=== PATIENT | female | born 1985 | race Caucasian/White ===

== ENCOUNTER 2024-03-07 12:11 | Emergency (ER) | payer OTHER, SELFPAY ==
[2024-03-07 12:16] VITALS: BP 161/105; PULSE 108; RESP 20; TEMP 36.9; O2SAT 96
--- NOTE | 2024-03-07 12:20 | ED.GENADULT ---
HPI - General Adult General Chief complaint: Upper Respiratory Infection Stated complaint: Sinus/Cough Time Seen by Provider: 03/07/24 12:20 Patient presents with complaints of being sick for 2 weeks. She reports that symptoms began with a runny nose and some sinus congestion. Over the past week she has noted more sinus pain, postnasal drip, cough. She states that yesterday she began wheezing and this is when she got concerned. She denies any fever, chills, sweats. She denies any GI symptoms. She does report that many years ago she was told that her blood pressure is elevated, but she was never put on any medications for same. She does not have a primary care provider at this time. She denies any chest pain or shortness of breath. Source: patient Related Data Allergies Allergy/AdvReac Type Severity Reaction Status Date / Time morphine AdvReac Intermediate itching Verified 03/07/24 12:14 Review of Systems Review of Systems: All systems reviewed & are unremarkable except as noted in HPI and below Constitutional: Constitutional: Reports no additional constitutional complaints ENT: Reports system reviewed and no additional complaints, except as documented, Reports as per HPI, Reports nasal discharge, Reports sinus pain, Reports sinus pressure and Reports sore throat Cardiovascular: Cardiovascular: Reports no additional cardiovascular complaints Respiratory: Respiratory: Reports no additional respiratory complaints, Reports cough, Denies pain with cough, Denies dyspnea and Reports wheezing Gastrointestinal: Gastrointestinal: Reports no additional gastrointestinal complaints [facility] Family History Family History Other Diabetes mellitus Family history of cardiovascular disease Hypertension Malignant neoplasm of prostate Social History Social History Alcohol intake: never Exam Const: General: cooperative, no acute distress, alert and awake Orientation/consciousness: oriented to person, oriented to place and oriented to time HENMT: Head: normal to inspection Face/Nose/Sinus: sinus tenderness (frontal) and Facial tenderness on exam of face and sinuses Throat: posterior oropharynx abnormal erythema and postnasal drainage Resp: Effort & Inspection: normal respiratory effort and able to speak in complete sentences Auscultation: clear to auscultation bilaterally, no crackles, no rales, no rhonchi and wheezes expiratory wheezes and scattered wheezes Cardio: Palpation: normal PMI Rate: regular rate Rhythm: regular rhythm Heart sounds: S1 normal heart sound present and S2 normal heart sound present Neuro: General: oriented to person, oriented to place and oriented to time Cranial nerves: Yes CN's II-XII intact bilaterally Psych: Appearance: grossly normal Thought process: Normal thought process present Insight: Good insight present (Psych) Judgement: Good judgement present (Psych) Course Course Level of Care: Express Care Visit Vital Signs Vital signs: Vital Signs Temperature 98.5 F 03/07/24 12:16 Pulse Rate 108 H 03/07/24 12:16 Respiratory Rate 20 03/07/24 12:16 Blood Pressure 161/105 H 03/07/24 12:16 Pulse Oximetry 96 03/07/24 12:16 Oxygen Delivery Room Air 03/07/24 12:16 Temperature 98.5 F 03/07/24 12:16 Pulse Rate 108 H 03/07/24 12:16 Respiratory Rate 20 03/07/24 12:16 Blood Pressure 161/105 H 03/07/24 12:16 Pulse Oximetry 96 03/07/24 12:16 Oxygen Delivery Room Air 03/07/24 12:16 Medical Decision Making MDM Narrative Medical decision making narrative: Patient with 2 week history of illness, worsening. Exam is consistent with both bronchitis and acute sinusitis. Will treat both conditions. Patient's blood pressure is noted to be quite elevated. She reports this has been pointed out to her in the past, but she was never put on any medications. She d
== END 2024-03-07 12:50 | disposition home or self-care (01) ==
PROVIDERS: Emergency Provider Nurse Practitioner Family
DX: J40 Bronchitis, not specified as acute or chronic (principal); J01.10 Acute frontal sinusitis, unspecified; R03.0 Elevated blood-pressure reading, without diagnosis of hypertension
CPT/HCPCS: 99213; G0463

== ENCOUNTER 2024-03-19 23:42 | Emergency (ER) | payer OTHER, SELFPAY ==
--- NOTE | ~2024-03-19 | XR_ITS ---
Clinical Indication: Shortness of breath, cough PA and lateral views of the chest: Comparison: 05/08/2011 Findings: The lungs are clear, without evidence of focal consolidation or pleural effusion. Cardiome diastinal silhouette is within normal limits. Bones and soft tissues are unremarkable. Impression: Normal chest. Reviewed, dictated and finalized at location . Impression: Normal chest.
--- NOTE | ~2024-03-19 | CT_ITS ---
Clinical Indication: Dyspnea CT Scan of the Chest with Contrast: Technique: Contiguous sections were acquired throughout the chest after intravenous administration of 100 cc of Omnipaque 350. Dose reduction technique was used on this scan by utilizing automated expos ure control and iterative reconstruction technique. The dose-length product (DLP) was 494.48 mGy-cm. Findings: There is no evidence of any significant mediastinal, hilar or axillary lymphadenopathy. There is no f illing defect in the pulmonary arterial tree to suggest pulmonary embolus. There is no evidence of ao rtic dissection or aneurysm. There is no evidence of pleural or pericardial effusion. The lungs are clear. No pulmonary nodules or infiltrates are noted. Images through the upper abdomen reveal no abnormalities. Impression: No evidence of pulmonary embolus, aortic dissection, or aortic aneurysm. Clear lungs. Reviewed, dictated and finalized at [facility]. Impression: No evidence of pulmonary embolus, aortic dissection, or aortic aneurysm. Clear lungs.
[2024-03-19 23:54] VITALS: BP 204/103; PULSE 128; RESP 20; TEMP 36.6; O2SAT 99
--- NOTE | 2024-03-20 03:34 | ECG_ITS ---
Test Date: 2024-03-20 03:45:18 Measurements Intervals [place] Rate: 96 P: 25 TN: 149 QRS: 1 QRSD: 85 T: 23 QT: 323 QTc: 409 Interpretive Statements SINUS RHYTHM VOLTAGE CRITERIA FOR LVH [MEETS CRITERIA IN ONE OF: R(aVL), S(V1), R(V5), R(V5/V6)+S(V1)] BORDERLINE ECG No previous ECG available for comparison Electronically Signed On 03-20-2024 17:05:50 CDT by Farooq Andres M.D.
[2024-03-20 03:53] LABS: Basophils Absolute Auto 0.1 K/mm3 (0.0-0.1); Basophils Percent Auto 0.3 % (0.2-1.2); Eosinophils Absolute Auto 0.1 K/mm3 (0-0.3); Eosinophils Percent Auto 0.8 % (0-4.4); Hematocrit 44.7 % (37.0-47.0); Hemoglobin 15.1 g/dL (12.0-15.0); Immature Granulocyte Absolute 0.06 K/mm3 (0.00-0.031); Immature Granulocyte Percent A 0.4 % (0-0.5); Lymphocytes Absolute Auto 5.15 K/mm3 (0.9-3.2); Lymphocytes Percent Auto 35.4 % (18.3-44.2); Mean Corpuscular HGB Conc 33.8 g/dl (32-36); Mean Corpuscular Hemoglobin 30.7 pg (26-34); Mean Corpuscular Volume 90.9 fl (80-100); Mean Platelet Volume 9.5 fl (7.4-10.4); Monocytes Absolute Auto 0.9 K/mm3 (0.1-0.6); Monocytes Percent Auto 5.8 % (2.6-8.5); Neutrophils Absolute Auto 8.3 K/mm3 (1.3-6.7); Neutrophils Percent Auto 57.3 % (45.5-73.1); Platelet Count Result 424 k/mm3 (150-375); Red Blood Count 4.92 M/mm3 (4.2-5.4); Red Cell Distribution Width 13.1 % (11.5-14.5); White Blood Count 14.6 K/mm3 (4.5-10.0)
[2024-03-20 04:09] LABS: Alanine Aminotransferase 47 U/L (6-35); Alkaline Phosphatase 128 U/L (38-126); Anion Gap 13 mmol/L (4-12); Aspartate Amino Transferase 42 U/L (14-36); Bilirubin,Total 0.5 mg/dL (0.2-1.3); Blood Urea Nitrogen 9 mg/dL (7-17); Calcium 9.5 mg/dL (8.4-10.2); Carbon Dioxide 23 mmol/L (22-30); Chloride 102 mmol/L (98-107); Estimated CRCL calculation 106 ml/min; Estimated Glomerular Filt Rate > 60; Glucose 127 mg/dL (65-110); Sodium 138 mmol/L (137-145)
[2024-03-20 04:29] LABS: Influenza A QL RT-PCR Negative (Negative); Influenza B QL RT-PCR Negative (Negative); RSV RNA, RT-PCR Negative (Negative); SARS-CoV-2 RNA PCR Negative (Negative)
[2024-03-20 06:09] VITALS: O2SAT 97
[2024-03-20 06:12] VITALS: BP 186/117; PULSE 113; RESP 17; O2SAT 96
[2024-03-20] MEDS: SODIUM CHLORIDE 0.9% IV 1,000 ML 999 ML IV CONT (06:12)
[2024-03-20 06:19] VITALS: PULSE 96; RESP 12
[2024-03-20] MEDS: IPRATROPIUM 0.5 MG/ALBUTEROL SULFATE 2.5 MG AMPUL.NEB 3 ML INHALATION (06:19)
[2024-03-20 06:21] VITALS: TEMP 36.9
--- NOTE | 2024-03-20 06:21 | PC.NURSE ---
EDP made aware of continuous high BP readings. no additional orders at this time.
[2024-03-20 06:28] VITALS: PULSE 97; RESP 14
[2024-03-20 06:38] LABS: INR 0.9; Prothrombin Time 12.6 Seconds (11.1-14.7)
[2024-03-20 06:39] LABS: Partial Thromboplastin Time 32.2 Seconds (22.3-36.8)
--- NOTE | 2024-03-20 06:47 | ED.GENADULT ---
HPI - General Adult General Chief complaint: Upper Respiratory Infection <Justino Perez MD - Last Filed: 03/20/24 06:50> Stated complaint: Coughx1 month, seen at <Justino Perez MD - Last Filed: 03/20/24 06:50> Time Seen by Provider: 03/20/24 05:18 <Justino Perez MD - Last Filed: 03/20/24 06:50> History of Present Illness HPI narrative: patient is a 39-year-old female who presents emergency department with chief complaint of cough and shortness of breath. The patient reports that she was seen at urgent care diagnosed with bronchitis put on Augmentin and Tessalon Perles the patient reports that she has continued to have a cough and noticed that her heart rate has been fast patient states that her blood pressure was running on the higher side and reports that his symptoms are just not getting any better. Patient reports no prior history of cardiac disease reports no history of thromboembolic disease <Justino Perez MD - Last Filed: 03/20/24 06:50> patient is a 39-year-old female who presents to the emergency department with chief complaint of cough and shortness of breath. The patient reports that she was seen at urgent care diagnosed with bronchitis put on Augmentin and Tessalon Perles the patient reports that she has continued to have a cough and noticed that her heart rate has been fast patient states that her blood pressure was running on the higher side and reports that his symptoms are just not getting any better. Patient reports no prior history of cardiac disease reports no history of thromboembolic disease <Cody Owens MD - Last Filed: 03/20/24 17:39> Related Data Allergies/adverse reactions: Allergies Allergy/AdvReac Type Severity Reaction Status Date / Time morphine AdvReac Intermediate itching Verified 03/19/24 23:57 <Justino Perez MD - Last Filed: 03/20/24 06:50> Review of Systems Review of Systems: A 10 system review of systems was completed on the patient and is negative except for what is stated in the HPI. Nursing and ancillary documentation was reviewed. <Justino Perez MD - Last Filed: 03/20/24 06:50> [facility] Family History Family History: Family History Other Diabetes mellitus Family history of cardiovascular disease Hypertension Malignant neoplasm of prostate <Justino Perez MD - Last Filed: 03/20/24 06:50> Social History Social History: Social History Alcohol intake: never <Justino Perze MD - Last Filed: 03/20/24 06:50> Exam Narrative: GENERAL: Well-appearing, well-nourished, and in no acute distress. HEAD: Normocephalic, atraumatic. EYES: PERRLA and EOMI. ENT: Nares clear, no rhinorrhea or epistaxis. Mucous membranes moist. NECK: Supple. CHEST: Clear to auscultation. No respiratory distress. HEART: tachycardic rate and regular rhythm. No murmur heard. Normal peripheral pulses. ABDOMEN: Soft, nontender, nondistended, normal active bowel sounds. EXTREMITIES: Normal range of motion. No edema. SKIN: Warm, dry, no rash. NEURO: No focal deficits. Alert and oriented x3. PSYCH: Normal mood and affect. <Justino Perez MD - Last Filed: 03/20/24 06:50> Course Reevaluation(s) Reevaluation #1: Patient care was signed out to me by Dr. Perez with CTA pending. Patient was afebrile but does have a leukocytosis of 14.6 but a stable hemoglobin of 15.1. Patient had no significant abnormalities on her CMP, EKG showed no evidence acute STEMI and patient's troponin was negative. Patient was negative for influenza RSV and for COVID. Chest x-ray showed no acute abnormality. CTA was ordered to evaluate for pulmonary embolism and this was negative. CTA also did not show any underlying pneumonia. Patient states that
[2024-03-20 06:51] LABS: Troponin I < 0.012 ng/mL (0.000-0.034)
[2024-03-20 07:00] LABS: Procalcitonin 0.1 ng/mL
[2024-03-20 08:18] VITALS: BP 183/102; PULSE 110; RESP 20; O2SAT 98
== END 2024-03-20 08:19 | disposition home or self-care (01) ==
PROVIDERS: Emergency Provider Emergency Medicine
DX: J06.9 Acute upper respiratory infection, unspecified (principal); Z20.822 Contact with and (suspected) exposure to COVID-19
CPT/HCPCS: 36415; 71046; 71275; 80053; 84145; 84484; 85025; 85610; 85730; 87637; 93005; 94640; 96360; 96361; 99284; J7030; Q9967

== ENCOUNTER 2024-12-27 15:09 | Outpatient (CLI) | payer OTHER, SELFPAY ==
--- NOTE | ~2024-12-27 | XR_ITS ---
XR lumbar spine 2-3V 12/27/2024 15:25 Indication: Low back pain. No recent injury. Procedure: 3 views lumbar spine Comparison: 02/20/2016 Findings: Vertebral body heights are maintained. There is mild disc narrowing at L5-S1. There is face t hypertrophy at L4-5 and L5-S1. Pedicles intact. Sacral foramen are symmetric. No acute fracture or traumatic malalignment. Impression: 1: Mild lumbar spondylosis. Reviewed, dictated and finalized at location A. Impression: 1: Mild lumbar spondylosis.
--- OUTSIDE RECORDS SUMMARY | 2024-12-27 15:13 | XMS_ITS | Clinical Summary ---
Author Organization [facility] Address [address] [place] [id number] Care Team Providers Care Gis Scientist Name Role Phone Unavailable Primary Care Provider Unavailabl e Social History Tobacco Use Types Packs/Day Years Used Date Smoking Tobacco: Never Assessed Comments Unknown Sex and Gender Information Value Date Recorded Sex Assigned at Not on file Legal Sex Female 5:36 PM CDT Gender Identity Not on file Sexual Orientation Not on file Last Filed Vital Signs Vital Sign Reading Time Taken Comments Blood Pressure 132/80 08/26/2016 1:55 PM [employer] Pulse 103 08/26/2016 1:55 PM [employer] Temperature - - Respiratory Rate - - Oxygen Saturation - - Inhaled Oxygen Concentration - - Weight 94.8 kg (209 lb) 08/26/2016 1:55 PM [employer] Height 163.8 cm (5' 4.5 ) 08/26/2016 1:55 PM [employer] Body Mass Index 35.32 08/26/2016 1:55 PM [employer] Plan of Treatment Health Maintenance Due Date Last Done Comments Cervical Cancer Screening Pa p Smear (Age 30 to 64) Every 3 Years 1987 Annual Physical 1990 Hepatitis C 2005 DTaP, Tdap and Td Vaccines ( 1 - Tdap) 2006 Hepatitis B Vaccines (1 of 3 - 19+ 3-dose series) 2006 Cervical Cancer Screening Pa p with HPV Testing (Age 30 to 64) Every 5 Years 2017 Cervical Cancer Screening with HPV 2017 COVID-19 Vaccine (2023-2 5 season) 2024 HPV Vaccines Aged Out No longer eligi ble based on patient's age to complete this topic Meningococcal B Vaccine Aged Out No l onger eligible based on patient's age to complete this topic Meningococcal Vaccine Aged Out No deanna alice eligible based on patient's age to complete this topic Pneumococcal Vaccine: Pediat rics (0 to 5 Years) and At-Risk Patients (6 to 49 Years) Aged Out No longer eligible b ased on patient's age to complete this topic RSV Immunizations Under 20 Months Aged Out No longer eligible based on patient's age to complete this topic
--- OUTSIDE RECORDS SUMMARY | 2024-12-27 15:13 | XMS_ITS | Data Portability ---
Author Organization [facility] [employer], Main Office Address [address] [place] [address] Assessment No assessment recorded. Plan of Treatment Reminders Order Date Submit Date Provider Last Modified By Organization Details Last Modified Time Details Appointments Follow Up 2024 01:30P CHUCK Garcia Not available Not available Not available Follow Up 2024 01:00P CHUCK Garcia Not available Not available Not available Lab CBC w/ auto diff 2024 025 [facility] (Lab), [address] [place], [address], 12/27/2024 14:55:11 C-reactiv e protein, quantitat ramesh, serum or plasma 2024 025 [facility] (Lab), [address] [place], [address], 12/27/2024 14:55:12 hepatic function panel, serum 2024 025 [facility] (Lab), [address] [place], [address], 12/27/2024 14:55:11 hemoglobi n A1C, fingersti ck 2024 025 [facility], [address] [place] [address], [address], 12/27/2024 14:54:57 vitamin B12 + folate, serum or blood 2024 025 [facility] (Lab), [address] [place], [address], 12/27/2024 14:55:12 vitamin D, 25-hydrox y, total, serum 2024 025 [facility] (Lab), [address] [place], [address], 12/27/2024 14:55:11 CMP, serum or plasma [address] (Lab), [address] [place], [address], 11/23/2024 08:08:31 lipid panel, serum [address] (Lab), [address] [place], [address], 11/23/2024 08:08:31 CBC w/ auto diff [facility]24 [facility] [address] [place], [address], 11/21/2024 12:16:39 glycohemo globin, total, blood [address] (Lab), [address] [place], [address], 11/23/2024 08:08:31 TSH, serum or plasma [address] (Lab), [address] [place], [address], 11/23/2024 08:08:30 thyroid peroxidas e (tpo) Ab, serum [address] (Lab), [address] [place], [address], 11/23/2024 08:08:30 Referral gastroent erologist referral - Ribbon like stools 2024 [email or web address] Not available 12/27/2024 15:14:37 dermatolo gist referral - Please call patient to schedule an appointme nt. Thank you. 2024 025 GERARD Blair NP, [address] [place], [address], 11/16/2024 18:50:36 Procedures None recorded. Surgeries None recorded. Imaging XR, lumbosacr al spine, 2 or 3 view 2024 [email or web address] [facility], [address], [place], [address], 12/27/2024 15:14:37 US, thyroid - Please call patient to schedule. 2024 025 [facility] ([facility]), [address] [place], [address], 12/01/2024 15:09:58 Medication Orders Mounjaro 2.5 mg/0.5 mL subcutane ous pen injector 2024 [id number], [address] [place], [place], [id number], 12/27/2024 14:55:07 lisinopri l 10 mg tablet 2024 025 [facility] #[id number], [address] [place], [place], [id number], 11/16/2024 17:12:10 omeprazol e 40 mg capsule,d elayed release 2024 025 [id number], [address] [place], [place], [id number], 11/16/2024 17:12:09 Patient TargetsNo targets recorded. Patient InstructionsNo instructions recorded. 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 Thank you. Referring Physician: Monica Washburn [facility], Encounter Date: 11/16/2024 Ticket Taker Referral for Abnormal feces Ribbon like stools Referring Physician: Monica Washburn [facility], Encounter Date: 12/27/2024 Results Created Date Observation Date Name Description Value Unit Range Abnormal Flag Note LastModifiedBy Organization Detail LastModifiedTime 12/02/1912/01/2024 US, thyro id No observ ation record ed. [facility] [address] [place], [address], 12/01/2024 17:17:00 Result Notes None recorded. Problems Name Problem SNOMED Code Status Onset Date Resolution Date Notes Provider Name and Address Organization Details Recorded Time Essential hypertension 36711529 Active 2024 CHUCK Quiroz [address], [place], [address], [employer] 16:16:54 Multinodular goiter 108534585 Active 2024 CHUCK Quiroz [address], [place], [address], [employer] 16:17:13 Skin lesion 81328453 Active 2024 CHUCK Quiroz [address], [place], [address], [employer] 16:19:15 Gastroesophage al reflux disease without esophagitis 140284200 Active 2024 CHUCK Quiroz [address], [place], [address], [employer] 16:26:02 Hyperlipidemia 50791564 Active [address], [place], [address], [employer] [place] [facility] 11:27:40 Type 2 diabetes mellitus without complication 833272402 Active 2024 CHUCK Quiroz [address], [place], [address], [employer] [place] [facility] 11:27:58 Fatigue 93292674 Active [address], [place], [address], [employer] [place] [facility] 14:41:08 Type 2 diabetes mellitus 69191336 Active 2024 CHUCK Quiroz [address], [place], [address], [employer] [place] [facility] [email or web address] 14:41:27 Leukocytosis 916275853 Active [address], [place], [address], [employer] [place] [email or web address] [email or web address] 14:44:51 Abnormal feces 809227537 Active 2024 CHUCK Quiroz [address], [place], [address], [employer] [facility] [employer] [facility] [email or web address] 14:47:38 Low back pain 198568324 Active [address], [place], [address], [employer] [place] [facility] 14:50:19 Umbilical hernia 236674336 Active 2024 CHUCK Quiroz [address], [place], [address], [place] [facility] 15:31:36 Problem Notes None recorded. Procedures Surgical History Date Name Laterality Status Provider Name and Address Organization Details Recorded Time 1 procedure on fallopian tube completed Latonya Rock RN [facility] 11/16/2024 15:53:34 1 repair of umbilical hernia completed Latonya Rock RN [facility] 11/16/2024 15:53:53 Ablation completed Latonya Rock RN [facility] 11/16/2024 15:54:19 Imaging Results Imaging Date Name Status LastModified by Organiz ation Details LastModified Time 12/01/2024 US, thyroid completed [facility] [address] [place], [address], 12/01/2024 17:17:00 Procedure Notes None recorded. Medical Equipment None Reported. Allergies No known drug allergies Medications Name Sig Start Date Stop Date Status Note LastModified by Organization Details LastModified Time atorvastati n 20 mg tablet TAKE 1 TABLET BY MOUTH EVERY DAY AT BEDTIME active Not Available Not Available No t Available benzonatate 200 mg capsule TAKE 1 CAPSULE BY MOUTH THREE TIMES DAILY NEEDED FOR COUGH 11/16 completed Not Available Not Available Not Available omeprazole 40 mg capsule,del ayed release TAKE 1 CAPSULE BY MOUTH EVERY DAY NEEDED active Not Available Not Available No t Available lisinopril 10 mg tablet TAKE 1 TABLET BY MOUTH EVERY DAY DIRECTED active Not Available Not Available No t Available prednisone 50 mg tablet TAKE 1 TABLET BY MOUTH DAILY 11/16 completed Not Available Not Available Not Available albuterol sulfate HFA 90 mcg/actuati on aerosol inhaler INHALE 2 PUFFS BY MOUTH FOUR TIMES DAILY NEEDED FOR SHORTNESS OF BREATH OR WHEEZING 11/16 completed Not Available Not Available Not Available metformin ER 500 mg tablet,exte nded release 24 hr TAKE 1 TABLET BY MOUTH EVERY DAY DIRECTED active Not Available Not Available No t Available amoxicillin 875 mg-potassiu m clavulanate 125 mg tablet TAKE 1 TABLET BY MOUTH EVERY 12 HOURS 11/16 completed Not Available Not Available Not Available Mounjaro 2.5 mg/0.5 mL subcutaneou s pen injector Inject 2.5 mg every week by subcutane ous route as directed for 28 days. 2024 active Not Available Not Available Not Avai lable Vitals Date Recorded Body weight Body mass index (BMI) Body height Body temperature Heart rate Respiratory rate Oxygen saturation Oxygen saturation in Arterial blood by Pulse oximetry Pain severity - 0-10 verbal numeric rating [Score] - Reported Systolic blood pressure Diastolic blood pressure Provider Name and Address Organization Details Last Updated DateTime 93599.3 6 g 36.3 kg/m2 163.83 cm 97.7 [degF] 128 /min 20 /min 99 % 99 % 0 218 mm[Hg] 118 mm[Hg] Latonya Rock RN [facility] [employer] 15:56:41 Date Recorded Systolic blood pressure Diastolic blood pressure Provider Name and Address Organization Details Last Updated DateTime 11/16/2024 160 mm[Hg] 90 mm[Hg] Monica Washburn, [employer] [address] [facility] [facility] [address], [place], [address], [place] [employer] [facility] [employer] 11/16/2024 16:32:17 Date Recorded Body height Body mass index (BMI) Body weight Body temperature Heart rate Oxygen saturation Oxygen saturation in Arterial blood by Pulse oximetry Respiratory rate Systolic blood pressure Diastolic blood pressure Provider Name and Address Organization Details Last Updated DateTime 163.83 cm 35.5 kg/m2 81523.1 5 g 98.2 [degF] 93 /min 98 % 98 % 20 /min 172 mm[Hg] 120 mm[Hg] Latonya Rock RN [facility] [employer] 14:32:28 Social History Question Answer Notes LastModified by Organizat ion Details LastModified Time Tobacco Smoking Status Never Smoker Latonya Rock RN [facility], [place] [facility] [employer] 11/16/2024 15:57:43 Do You Have An Advance Directive? No Information not available 12/27/2024 What Is Your Level Of Caffeine Consumption? Occasional Information not available 11/16/2024 In The 14 Days Before Symptom Onset, Have You Had Close Contact With A Laboratory-confir med COVID-19 While That Case Was Ill? No Information not available 11/16/2024 In The 14 Days Before Symptom Onset, Have You Had Close Contact With A Person Who Is Under Investigation For COVID-19 While That Person Was Ill? No Information not available 11/16/2024 What Type Of Diet Are You Following? REGULAR Information not available 11/16/2024 Have There Been Any Changes To Your Family Or Social Situation? No Information no t available 11/16/2024 Do You Use Insect Repellent Routinely? No Information not available 11/16/2024 Where Do You Live? SingleLevelHouse Information not available 11/16/2024 Do You Have A Medical Power Of [employer]x Ribbon Machine Operator? No Information not available 12/27/2024 How Many Children Do You Have? 2 Information not available 11/16/2024 Do You Have Any Pets? Yes Information not available 11/16/2024 What Is Your Relationship Status? Single Information not available 11/16/2024 Do You Use Your Seat Belt Or Car Seat Routinely? Yes Information not available 11/16/2024 Do You Have Smoke And Carbon Monoxide Detectors In Your Home? Yes Information not available 11/16/2024 Are You Passively Exposed To Smoke? Yes Information no t available 12/27/2024 Are There Any Smokers In Your House? Yes Information not available 12/27/2024 Do You Participate In Social Media? Yes Information not available 11/16/2024 Do You Use Sunscreen Routinely? No Information not available 11/16/2024 Have You Recently Traveled Abroad? No Information not available 11/16/2024 Sex: Unknown Functional Status Question Answer Note LastModified by Organizat ion Details LastModified Time Do you use any illicit or recreational drugs? No Information not available 11/16/2024 What is your level of alcohol consumption? Occasional Information not available 11/16/2024 Are you currently employed? 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 None Information not available 11/16/2024 Mental Status Question Answer Note LastModified by Organization D etails LastModified Time Do you feel stressed (tense, restless, nervous, or anxious, or unable to sleep at night)? [id number] Information not available 12/27/2024 Family History Relationship Description Onset Age of this Age Resolved Age Notes LastModified by Organization Details LastModified Time Father Diabetes mellitus Not available 2024 15:52:19 Paternal Grandmother Diabetes mellitus Not available 2024 15:52:19 Maternal Grandfather Malignant neoplasm of bone Not available 2024 15:52:44 Maternal Grandmother Malignant tumor of kidney Not available 2024 15:53:00 Medical History Condition Response HYPERTHYROIDISM Y OBESITY Y HYPERTENSION Y Gynecological History Statement/Question Response Date of Last Pap Smear Date of Last Colonoscopy Most Recent Mammogram Date of LMP Most Recent Bone Density Obstetrics History GPAL:G 0 P 0 0 0 0 Immunizations Vaccine Type Date Status Note Provider Esequiel castillo and Address Organization Details Recorded Time Tdap 11/16/2024 completed CHUCK Quiroz [address], [address], [facility] 11/16/2024 17:12:10 Past Encounters Encounter ID Performer Location Encounter Start Date Encounter Closed Date Diagnosis/Indication Diagnosis SNOMED-CT Code Diagnosis ICD10 Code Diagnosis Note [id number] Jason Montoya MD [facility] [address] [address] 11/16/2024 15:44:21 11/16/2024 17:14:26 Adult health examination 387927183 Z00.00 [facility] is overall healthyHea [facility] e reviewedDi scussed diet and exercisePa tient questions answered Essential hypertension 26379491 I10 Has never taken medication s for this, will follow closelySta rting BP log at home Multinodular goiter 2375 [address] E04.2 Used to see endocrinol ora, has not seen in many years Skin lesion 86264800 L98 .9 on nose, present for years but growing Administra tion of tetanus vaccine 185648176 Z23 Gastroesop hageal reflux disease without esophagitis 554170572 K21.9 Notes occasional vomiting Diabetes m ellitus screening 411738636 Z13.1 [id number] CHUCK Quiroz [facility] [address] [address] 12/27/2024 14:11:41 12/27/2024 15:14:37 Fatigue 15875929 R53.82 Persistent , does feel a little better with BP control Type 2 maranda betes mellitus 75621267 E11.9 A1C increased from 6.7 to 6.8 while on Metformin Leukocytosis 696241131 D 72.829 Elevated on last labs Abnormal feces 159913719 R19.5 Ribbon like with associated back pain, denies weight loss or blood in stools Low back pain 767677435 M54.59 Umbilical hernia 4659474 07 K42.9 Previously surgically repaired but has returned. Non-tender . Will monitor for now Health Concerns Section Related Observation LastModified by Organization Detai ls LastModified Time None Recorded Concern Status LastModified by Organization Details LastModified Time None Recorded Advance Directives Directive N: Payers Encounter Date Sequence Insurance Name Policy Number Policy Duncan Covered Member ID Duncan Member ID Guarantor Name 11/16/2024 1 [facility] ON OR AFTER 02/13/21 (MEDICAID REPLACEMENT - HMO) Winsome Sawyerdevin [id number] Winsome Mezasean 12/27/2024 1 [facility] ON OR AFTER 02/13/21 (MEDICAID REPLACEMENT - HMO) Winsome Gerardo [id number] Winsome Carrillo Notes Date Note Type Note Provider Name and Address Organization Details Recorded Time 11/16/2024 text/html Winsome Carrillo is a 39 year old female patient here today to establish care. She has not seen a doctor in years. She has a history of high blood. Has been checking at home, averaging 160s/100s. BP on arrival 218/118, pulse 128, recheck 160/90. 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 She has not seen them in years. Concerns with excessive sleepiness. States she is sleeping most days Concerns with a nodule on her nose that has been there for a year. Would like to see dermatology Does have daily headaches. Takes tylenol 2-3 times per week. Flu shot: declinesCOVID vaccines: declinesTdap: 11/16/2024WWE: 2022Mammogram: not indicatedColonoscop y: not indicated CHUCK Quiroz [address], [facility] [address], [place], [address], [facility] [employer] [facility] [employer] 11/16/2024 17:12:30 12/27/2024 text/html Hypertension - w e recently initiated lisinopril 10 mg, her home BPs 120-140s/70s. She notes that for the last few months she has had moderate to severe back pain with associated ribbon stools. Notes family history of colon cancer. Type 2 DM diagnosed at last appt. Her A1C was 6.7, we began metformin and her A1C is now 6.8. She would like a GLP1 Hyperlipidemia managed with atorvastatin. She denies muscle cramping. WBC was elevated at last appt, associate liver enzyme elevations Concerns with persistent fatigue CHUCK Quiroz [address], [facility] [address], [place], [address], [employer] [facility] [employer] 12/27/2024 15:32:51 OBGyn Episode No OBEpisode recorded.
== END 2024-12-27 15:10 | disposition home or self-care (01) ==
DX: M47.896 Other spondylosis, lumbar region (principal)
CPT/HCPCS: 72100